=== PATIENT | female | born 1995 | race Caucasian/White ===

== ENCOUNTER 2024-09-19 15:31 | Outpatient (CLI) | payer BC | END 2024-09-19 15:32 | disposition home or self-care (01) | LOC: CSHLAB 15:31 | PROVIDERS: ATTEND Obstetrics & Gynecology | DX: Z01.812 Encounter for preprocedural laboratory examination (principal); R10.2 Pelvic and perineal pain; G89.29 Other chronic pain | CPT/HCPCS: 84703; 85027; 86850; 86900; 86901 ==

== ENCOUNTER → 2024-09-21 | Day surgery (SDC) | payer BC ==
[2024-09-19 15:45] VITALS: BMI 35.5
[2024-09-19 16:19] LABS: Hematocrit 37.9 % (34.9-44.5); Hemoglobin 12.2 g/dL (12.0-15.5); Mean Corpuscular Hemoglobin 27.1 pg (27.0-33.0); Mean Corpuscular Volume 84.2 fL (81.6-98.3); Platelet Count 320 10x3/uL (150-450); Red Blood Cell (RBC) Count 4.50 10x6/uL (3.90-5.03); White Blood Cell (WBC) Count 10.48 10x3/uL (3.5-10.5)
[2024-09-19 16:29] LABS: BHCG - Serum Negative (NEGATIVE); Pregs Control Background? CLEAR/WHITE (CLR/WHITE); Pregs Control Bar Appear? YES (CONTROL BAR)
[~2024-09-21] MED LIST: Bupivacaine HCl 0.5%/Epinephrine 1:200,000/PF 30 ml Vial ONE; CEFAZOLIN 2 GM VIAL ONE; Famotidine/PF 20 mg/2ml Vial ONE; Gabapentin 300 MG CAP ONE; HYDROcodone/Acetaminophen 5/325 mg Tablet ONE; Lidocaine 4% Topical Sol 50 ML BOT ONE; Ondansetron PF 4 MG/2 ML Vial ONE; PROPOFOL 20 ML ONE; Rocuronium Bromide 10 MG/ML (10ML VIAL) ONE; Scopolamine 1 mg/72 hour Patch ONE
== END ==
LOC: CSHSDC 11:25
PROVIDERS: ATTEND Obstetrics & Gynecology
DX: N80.3C2 Endometriosis of the left uterosacral ligament, unspecified depth (principal); N83.8 Other noninflammatory disorders of ovary, fallopian tube and broad ligament; R10.2 Pelvic and perineal pain; G89.29 Other chronic pain; L73.2 Hidradenitis suppurativa
CPT/HCPCS: 36415; 84703; 85027; 86850; 86900; 86901; 88304; 88305; J1100; J1308; J2250; J2405; J2704; J3010